=== PATIENT | male | born 1955 | race Caucasian/White ===

== ENCOUNTER 2020-06-27 17:44 | Emergency (ER) | payer MEDICARE, SELFPAY ==
[2020-06-27] VITALS (8 sets, daily range): BP systolic 173–202; BP diastolic 100–120; PULSE 68–100; RESP 24; TEMP 36.5; O2SAT 93–98
--- NOTE | 2020-06-27 17:52 | DI.RAD.S_ITS ---
PROCEDURE: XR ELBOW LT MIN 3V INDICATIONS: trauma TECHNIQUE: 4 views of the elbow were acquired. COMPARISON: None. FINDINGS: Bones: Acute comminuted distal humeral fracture is seen with fracture line extending to both medial and lateral humeral condyle and its articulation with proximal ulnar. Shortening and overlapping at distal humeral shaft is also noted. No gross dislocation. No suspicious bony lesions. Soft tissues: No elbow joint effusion. No suspicious soft tissue calcifications. IMPRESSION: Acute comminuted and impacted distal humeral fracture as above. Dictated by: Henry Bardales M.D. on 06/27/2020 at 18:15 Approved by: Henry Bardales M.D. on 06/27/2020 at 18:17
--- NOTE | 2020-06-27 18:11 | ED.GENADULT ---
HPI - General Adult General Chief complaint: Trauma Stated complaint: modified trauma Time Seen by Provider: 06/27/20 17:58 Source: patient and EMS Mode of arrival: EMS Limitations: no limitations History of Present Illness HPI narrative: Patient is a 64-year-old male was brought in by EMS on a backboard and cervical collar and in a left upper extremity splint brought in as a modified trauma secondary to injuries he sustained when he was a couple steps up on a ladder and fell off the ladder landing on his left elbow. He is not on anticoagulation. Did not hit his head. No loss of consciousness. Has pain to the left elbow. Bleeding to the left elbow. Your arrived immobilized by EMS. He reports no symptoms except for pain in his left elbow. He states this pain is only when his left elbow is moved. States that his last tetanus shot was just a couple years ago. He is unsure exactly how he fell off the ladder. Related Data Previous Rx's Medication Instructions Recorded cephalexin [Keflex] 500 mg PO QID 5 Days #20 cap 06/27/20 hydrocodone-acetaminophen [Cantril] 1 tab PO Q4-6H PRN #14 tab 06/27/20 ondansetron 4 mg PO Q6H PRN #10 tab 06/27/20 Allergies Allergy/AdvReac Type Severity Reaction Status Date / Time No Known Drug Allergies Allergy Verified 06/27/20 18:18 Review of Systems Constitutional Constitutional: Denies fatigue and Denies headache(s) Eyes Eyes: Denies change in vision ENT Ears, Nose, Mouth, and Throat: Denies vertigo, Denies dizziness and Denies headache(s) Cardiovascular Cardiovascular: Denies chest pain, Denies rapid heart rate and Denies dyspnea Respiratory Respiratory: Denies cough and Denies dyspnea Gastrointestinal Gastrointestinal: Denies abdominal pain, Denies nausea and Denies vomiting Genitourinary Genitourinary: Denies dysuria Genitourinary: Denies dysuria Musculoskeletal Musculoskeletal: Denies back pain Comments: Left elbow pain Integumentary/Breasts Comments: Skin abrasions cut to left elbow Neurologic Neurologic: Denies confusion, Denies vertigo, Denies dizziness and Denies headache(s) Psychiatric Psychiatric: Denies confusion Endocrine Endocrine: Denies fatigue Hematologic/Lymphatic Hematologic/Lymphatic: Denies easy bleeding and Denies easy bruising Allergic/Immunologic Allergic/Immunologic: Denies urticaria Patient History Medical History Patient denies medical problems Social History Smoking Status: Never smoker Exam Initial Vital Signs Initial Vital Signs: Vital Signs Pulse Rate 72 06/27/20 17:12 Respiratory Rate 24 06/27/20 17:12 Blood Pressure 202/120 H 06/27/20 17:12 Pulse Oximetry 98 06/27/20 17:12 Const General: cooperative Limitations: mental status not altered [facility] Head: normal to inspection and normocephalic Ears: hearing grossly normal bilaterally Nose: external nose normal Face and sinus: normal facial exam Eyes General: appearance normal, both eyes and all related structures Chest Chest: No crepitus and No tenderness Resp Effort & Inspection: normal respiratory effort Auscultation: clear to auscultation bilaterally Cardio Rate: regular rate Rhythm: regular rhythm Pulses: radial pulses present on the left GI Inspection: non-distended Palpation: soft, No firm and No tender Back/Spine/Pelvis Cervical Spine: collar present, No cervical muscular tenderness, No pain with cervical ROM, No cervical spinal tenderness and No step off deformity Thoracic/Lumbar Spine: No paraspinal tenderness, No thoraco-lumbar spasm, No thoracic spinal tenderness and No lumbar spinal tenderness Skin Other: Superficial skin abrasions and a 0.25 cm laceration over the olecranon process on the left elbow. Neuro General: patient alert, patient awake and patient oriented x3 Gait: normal gait Sensory Exam: no sensory deficits noted Other: Patient can flex and extend the left wrist. Ulnar and radial nerve motorIntact to left hand. Extrem Other: Left shoulder unremarkable. Left wrist unremarkable. Can flex and extend. Sensation motor intact to left wrist. Ulnar nerve intact both sensation and motor left upper extremity. Procedures Orthopedic Splinting/Casting Injury #1: Side: left Upper Extremity Injury Location: elbow Upper Extremity Immobilizer: posterior splint and sugar tong splint Other Orthopedic Equipment: other (Sling) Post splinting neuro exam: intact Post splinting vascular exam: intact Placed by: Provider Course Orders Ordered: ED Orders 06/27/20 17:52 XR elbow LT min 3V Stat 06/27/20 18:30 Basic Metabolic Panel Stat Complete Blood Count AUTO DIFF Stat 06/27/20 18:42 CT UE LT wo con Stat 06/27/20 20:55 COVID19 Stat Discontinued Medications Hydrocodone Bitart/Acetaminophen (Hydrocodone/Acet 5/325 Prepack) 1 bottle MISC SEEINSTR ONE Stop: 06/27/20 21:08 Last Admin: 06/27/20 21:27 Dose: 1 bottle Documented by: JAYNE Hydromorphone HCl (Hydromorphone 1 Mg Inj) 1 mg IV NOW ONE Stop: 06/27/20 18:55 Last Admin: 06/27/20 19:02 Dose: 1 mg Documented by: [email or web address] Sodium Chloride (Normal Saline 0.9%) 1,000 mls @ 125 mls/hr IV CONT YESI Last Admin: 06/27/20 18:54 Dose: 125 mls/hr Documented by: BTONEAgata Cefazolin Sodium/Dextrose (Ancef) 2 gm in 100 mls @ 200 mls/hr IV NOW ONE Stop: 06/27/20 18:38 Last Infusion: 06/27/20 20:57 Dose: 0 mls/hr Documented by: Admin: 06/27/20 18:54 Dose: 200 mls/hr Documented by: NAEEM Ondansetron HCl (Ondansetron 4 Mg Odt Prepack) 1 bottle MISC SEEINSTR ONE Stop: 06/27/20 21:36 Last Admin: 06/27/20 21:40 Dose: 1 bottle Documented by: JAZMIN Vital Signs Vital signs: Vital Signs - 8 hr 06/27/20 17:12 06/27/20 17:45 06/27/20 20:03 Temperature 97.7 F Pulse Rate 72 68 91 H Respiratory Rate 24 Blood Pressure 202/120 H 198/114 H Pulse Oximetry 98 94 94 06/27/20 20:16 06/27/20 20:30 06/27/20 21:00 Temperature Pulse Rate 91 H 90 91 H Respiratory Rate Blood Pressure 178/100 H 173/107 H 191/120 H Pulse Oximetry 93 94 95 06/27/20 21:06 06/27/20 21:30 Temperature Pulse Rate 93 H 100 H Respiratory Rate Blood Pressure 175/117 H Pulse Oximetry 95 95 Medical Decision Making Lab Data Lab results reviewed: Yes I reviewed the patient's lab results. Result diagrams: 06/27/20 18:30 06/27/20 18:30 Labs: Lab Results 06/27/20 06/27/20 06/27/20 Range/Units 18:30 18:30 20:55 WBC 14.9 H (4.5-11.0) X10^3/uL RBC 4.96 (4.5-5.9) X10^6/uL Hgb 16.3 (13.5-17.5) g/dL Hct 47.8 (41-53) % MCV 96.4 (80-100) fL MCH 32.8 (26-34) PG MCHC 34.1 (30-36) % RDW 12.6 (11.6-14.8) % Plt Count 161 (150-400) X10^3/uL Neut % (Auto) 86.0 H (50-75) % Lymph % (Auto) 8.1 L (25-40) % [place] % (Auto) 5.3 (3-14) % Eos % (Auto) 0.2 L (2-4) % Baso % (Auto) 0.4 (0-2) % Neut # (Auto) 17802 H (0343-7382) /uL Lymph # (Auto) 1200 (5964-0885) /uL [place] # (Auto) 800 (0-900) /uL Eos # (Auto) 0 (0-450) /uL Baso # (Auto) 100 (0-100) /uL Sodium 139 (137-145) mmol/L Potassium 4.2 (3.4-5.1) mmol/L Chloride 106 (98-107) mmol/L Carbon Dioxide 27 (22-32) mmol/L BUN 16 (9-20) mg/dL Creatinine 0.70 (0.66-1.25) mg/dL Estimated GFR > 60.0 (>60) mL/min BUN/Creatinine Ratio 22.9 H (6-22) Glucose 105 (80-110) mg/dL Calcium 9.1 (8.4-10.2) mg/dL COVID-19 PCR Negative (Negative) Imaging Data Extremity x-ray #1: Radiologist's Impression: [address] [id number] ReportSigned Patient: John JoyaMR#: [id number]: 4Acct:[id number]/Sex: 64 / MDate of Service: 06/27/20Loc: EDAccession Number: [id number] Procedure: XR elbow LT min 3V Ordering Provider: Nallely Chery D.O. PROCEDURE: XR ELBOW LT MIN 3V INDICATIONS: trauma TECHNIQUE: 4 views of the elbow were acquired. COMPARISON: None. FINDINGS: Bones: Acute comminuted distal humeral fracture is seen with fracture line extending to both medial and lateral humeral condyle and its articulation with proximal ulnar. Shortening and overlapping at distal humeral shaft is also noted. No gross dislocation. No suspicious bony lesions. Soft tissues: No elbow joint effusion. No suspicious soft tissue calcifications. IMPRESSION: Acute comminuted and impacted distal humeral fracture as above. Dictated by: Henry Bardales M.D. on 06/27/2020 at 18:15 Approved by: Henry Bardales M.D. on 06/27/2020 at 18:[address]: Radiologist's Impression: [address] Scan ReportSigned Patient: John Joya PMR#: [id number]: 4Acct:[id number]/Sex: 64 / MDate of Service: 06/27/20Loc: EDAccession Number: [id number] Procedure: CT UE LT wo con Ordering Provider: Nathanael Figueroa D.O. PROCEDURE: CT UE LT WO CON INDICATIONS: distal humerus fracture TECHNIQUE: Noncontrast 1-1.5 mm axial sections were acquired through the elbow joint, with coronal and sagittal reformats. COMPARISON: None. FINDINGS: Image quality: Excellent. Bones: As seen on elbow radiograph, again noted is acute comminuted fracture involving distal humeral shaft with fracture line extending to both medial and lateral humeral condyle as well as olecranon fossa with numerous small displaced fractured fragments. There is also up to 1.8 centimeter dorsal displacement of distal humerus in relation to distal humeral shaft and up to 3 centimeter overlapping at fracture site. No gross fracture in proximal radius is seen. Tiny chip fracture involving lateral and posterior aspect of proximal olecranon is seen with minimally displaced tiny fragment seen. No dislocation is noted. Soft tissues: There is marked soft tissue swelling and edema surrounding distal humeral fracture site. Moderate to large joint effusion is also present. IMPRESSION: 1. Acute comminuted, and displaced distal humeral fracture as described in detail above with fracture line extending to involve both medial and lateral epicondyles as well as olecranon groove. 2. Tiny chip fracture involving posterior lateral corner of proximal olecranon. 3. Significant soft tissue swelling and edema surrounding fracture site. Moderate to large joint effusion. Dictated by: Henry Bardales M.D. on 06/27/2020 at 19:40 Approved by: Henry Bardales M.D. on 06/27/2020 at 19:48 [facility] Narrative Medical decision making narrative: Patient was ambulatory. Has no other injuries from the fall found on exam or reported by the patient except for his left elbow. Does have a comminuted distal humerus fracture both seen on the x-rays and also the CT scan. The CT scan was ordered after consultation with Dr. Butcher with Orthopedics. Patient was given Ancef. His tetanus was updated prior to his arrival. Line we is to have patient follow-up with orthopedics as an outpatient. He was sent home with pain medicine and antibiotics. He was splinted in position of comfort per orthopedic recommendation. Orthopedics was aware of the skin abrasions and small laceration. Patient given care instructions and return precautions. He expressed understanding and agreement Discharge Plan Departure Patient Disposition: Home Clinical Impression: Abrasion of skin, Laceration of skin Fracture of distal end of humerus Qualifiers: Encounter type: initial encounter Fracture type: open Fracture morphology: unspecified fracture morphology Laterality: left Qualified Code(s): S42.402B - Unspecified fracture of lower end of left humerus, initial encounter for open fracture Fall from ladder Qualifiers: Encounter type: initial encounter Qualified Code(s): W11.XXXA - Fall on and from ladder, initial encounter Instructions: How to Take Care of Your Splint, Humeral Shaft Fracture Activity Restrictions/Additional Instructions: Start taking the antibiotics on 06/28/20 as directed. Take the pain medicine as needed. The splint needs to stay on and stay clean and stay dry. I discussed your case with Dr. Butcher with the [facility] group. Call their office tomorrow at [phone] for a follow-up. Return to the emergency department for any new or worsening symptoms Prescriptions: New hydrocodone-acetaminophen [Cantril] 5-325 mg tablet 1 tab PO Q4-6H PRN (Reason: pain) Qty: 14 RF: 0 cephalexin [Keflex] 500 mg capsule 500 mg PO QID 5 Days Qty: 20 RF: 0 ondansetron 4 mg tablet,disintegrating 4 mg PO Q6H PRN (Reason: nausea and vomiting) Qty: 10 RF: 0
--- NOTE | 2020-06-27 18:19 | PC.NURSE ---
1800 pt cleared off backboard/collar by dr. neely. pt turned for spinal exam per protocol.
[2020-06-27 18:38] LABS: Eosinophils Absolute Auto 0 /uL (0-450); Eosinophils Percent Auto 0.2 % (2-4)
--- NOTE | 2020-06-27 18:42 | DI.CT.S_ITS ---
PROCEDURE: CT UE LT WO CON INDICATIONS: distal humerus fracture TECHNIQUE: Noncontrast 1-1.5 mm axial sections were acquired through the elbow joint, with coronal and sagittal reformats. COMPARISON: None. FINDINGS: Image quality: Excellent. Bones: As seen on elbow radiograph, again noted is acute comminuted fracture involving distal humeral shaft with fracture line extending to both medial and lateral humeral condyle as well as olecranon fossa with numerous small displaced fractured fragments. There is also up to 1.8 centimeter dorsal displacement of distal humerus in relation to distal humeral shaft and up to 3 centimeter overlapping at fracture site. No gross fracture in proximal radius is seen. Tiny chip fracture involving lateral and posterior aspect of proximal olecranon is seen with minimally displaced tiny fragment seen. No dislocation is noted. Soft tissues: There is marked soft tissue swelling and edema surrounding distal humeral fracture site. Moderate to large joint effusion is also present. IMPRESSION: 1. Acute comminuted, and displaced distal humeral fracture as described in detail above with fracture line extending to involve both medial and lateral epicondyles as well as olecranon groove. 2. Tiny chip fracture involving posterior lateral corner of proximal olecranon. 3. Significant soft tissue swelling and edema surrounding fracture site. Moderate to large joint effusion. Dictated by: Henry Bardales M.D. on 06/27/2020 at 19:40 Approved by: Henry Bardales M.D. on 06/27/2020 at 19:48
[2020-06-27 18:43] LABS: Add Manual Diff / Slide Review NO; Basophils Absolute Auto 100 /uL (0-100); Basophils Percent Auto 0.4 % (0-2); Hematocrit 47.8 % (41-53); Hemoglobin 16.3 g/dL (13.5-17.5); Lymphocytes Absolute Auto 1200 /uL (1100-4500); Lymphocytes Percent Auto 8.1 % (25-40); Mean Corpuscular HGB Conc 34.1 % (30-36); Mean Corpuscular Hemoglobin 32.8 PG (26-34); Mean Corpuscular Volume 96.4 fL (80-100); Monocytes Absolute Auto 800 /uL (0-900); Monocytes Percent Auto 5.3 % (3-14); Neutrophils Absolute Auto 12800 /uL (1500-7000); Platelet Count 161 X10^3/uL (150-400); Red Blood Cell Count 4.96 X10^6/uL (4.5-5.9); Red Cell Distribution Width 12.6 % (11.6-14.8); White Blood Cell Count 14.9 X10^3/uL (4.5-11.0)
[2020-06-27] MEDS: SODIUM CHLORIDE 0.9% 1,000 ML 125 ML IV (18:54)
[2020-06-27] MEDS: CEFAZOLIN 2 GM/100 ML FROZ.PIGGY IV (18:54)
[2020-06-27 18:55] LABS: BUN Creatinine Ratio 22.9 (6-22); Blood Urea Nitrogen 16 mg/dL (9-20); Calcium 9.1 mg/dL (8.4-10.2); Carbon Dioxide 27 mmol/L (22-32); Chloride 106 mmol/L (98-107); Estimated Glomerular Filt Rate > 60.0 mL/min (>60); Glucose 105 mg/dL (80-110); HEMOLYSIS < 15 (0-50); Potassium 4.2 mmol/L (3.4-5.1); Sodium 139 mmol/L (137-145)
[2020-06-27] MEDS: HYDROMORPHONE 1 MG INJ IV (19:02)
[2020-06-27 20:56] LABS: COVID19 -Nasal RAPID Negative (Negative)
[2020-06-27] MEDS: HYDROCODONE/ACET 5/325 PREPACK 1 BOTTLE MISC (21:27)
[2020-06-27] MEDS: ONDANSETRON 4 MG ODT PREPACK 1 BOTTLE MISC (21:40)
== END 2020-06-27 21:55 | disposition home or self-care (01) ==
PROVIDERS: Emergency Provider Emergency Medicine
DX: S42.402B Unspecified fracture of lower end of left humerus, initial encounter for open fracture (principal); S50.312A Abrasion of left elbow, initial encounter; W11.XXXA Fall on and from ladder, initial encounter
CPT/HCPCS: 29105; 29125; 36415; 73080; 73200; 80048; 85025; 87635; 96361; 96365; 96366; 96375; 99284; J0690; J1170

== ENCOUNTER 2020-06-29 13:06 | Day surgery (SDC) | payer MEDICARE, SELFPAY ==
[2020-06-29] VITALS (8 sets, daily range): BP systolic 101–159; BP diastolic 71–103; PULSE 77–95; RESP 14–21; TEMP 36.6–37.5; O2SAT 88–98; BMI 32.3
--- NOTE | 2020-06-29 15:36 | SUR.PREOP ---
Patient resting quietly in bed awaiting surgical procedure.
--- NOTE | 2020-06-29 15:44 | PM.HP.1 ---
History of Present Illness History of Present Illness Date Patient Seen: 06/29/20 Time Patient Seen: 15:28 Chief complaint: SDC Narrative: 64-year-old gentleman who fell off a ladder landing on the posterior aspect of his left elbow sustaining an intra-articular distal humerus fracture Patient History Medical History Patient denies medical problems Family & Social History Social History: household members none Tobacco & Substance use: Smoking Status Never smoker alcohol intake frequency holiday/special occasion Substance Use Type does not use Meds Home Medications and Allergies Home Medications Medication Instructions Recorded Confirmed Type cephalexin [Keflex] 500 mg PO QID 5 Days #20 cap 06/27/20 Rx hydrocodone-acetaminophen [[place]] 1 tab PO Q4-6H PRN #14 tab 06/27/20 Rx ondansetron 4 mg PO Q6H PRN #10 tab 06/27/20 Rx Allergies Allergy/AdvReac Type Severity Reaction Status Date / Time No Known Drug Allergies Allergy Verified 06/29/20 13:57 Review of Systems Review of Systems ROS: Yes All systems reviewed with the patient and are negative except as otherwise documented Exam Vital Signs (past 8 hours): - 06/29/20 14:20 Temperature 98 F Pulse Rate 82 Respiratory Rate 16 Blood Pressure 139/94 H Pulse Oximetry 98 Oxygen Delivery Method Room Air Narrative Exam Narrative: On physical exam, patient alert and oriented x3. No apparent distress. Patient has normal flexion and extension of his fingers. Ulnar, median, and radial nerve intact both motor and sensory function. Brisk cap refill. Palpable radial pulse. Patient has some abrasions over the olecranon but no sign of any open injury. No sign of any open fracture. The abrasions over the olecranon or clean no sign of any foreign material dirt or debris. Nontender to palpation to the forearm wrist and hand. No sign of any proximal humerus or clavicle fracture. Assessment & Plan Assessment & Plan narrative: Patient with a highly comminuted intra-articular distal humerus fracture requiring surgical fixation. Will plan on doing an open reduction internal fixation of the left distal humerus with olecranon osteotomy in order to access the articular surface of the distal humerus. I went over the particular risks and limitations associated with the procedure. All of the questions and concerns were answered to his full satisfaction and consent form was freely obtained. COVID-19 COVID-19 status: Negative Result date/Date tested (Pos, Neg/Pending): 06/27/20 Time Spent With Patient Time with patient: 15-24 minutes
--- NOTE | 2020-06-29 15:48 | PM.PREOP ---
Pre-operative Note COVID-19 COVID-19 status: Negative Result date/Date tested (Pos, Neg/Pending): 06/27/20 Interval Note History & Physical reviewed/Exam performed by Physician: Yes Changes to H&P: No
[2020-06-29] MEDS: LACTATED RINGERS 1,000 ML 42 ML IV ×2 (15:50→17:40)
[2020-06-29] MEDS: fentaNYL 100 MCG/2 ML INJ 50 MCG IV (15:57)
[2020-06-29] MEDS: MIDAZOLAM 2 MG/2 ML VIAL IV (15:57)
--- NOTE | 2020-06-29 16:04 | SUR.PREOP ---
Block start time [1555] . Monitoring initiated and maintained throughout procedure. Oxygen and medications given per anesthesiologist instructions. Patient remained stable throughout procedure, no adverse reactions noted. Block end time 1620 ].
[2020-06-29] MEDS: CEFAZOLIN 2 GM/100 ML FROZ.PIGGY IV (16:29)
--- NOTE | 2020-06-29 16:42 | PM.PROC.1 ---
Procedures Date/Time Date of procedure: 06/29/20 Time of procedure: 15:55 Nerve Block Time out performed: Yes Location of anesthetic used: left supraclavicular brachial plexus Amount of anesthesia used (mL): 17 Nerve blocks: brachial plexus (Left supraclavicular block) Procedure successful: Yes Patient tolerated procedure: well and no complications Complications: none Additional comments: Patient for ORIF of left elbow. Brachial Plexus Block offered for post op pain control. Risks and benefits discussed and questions answered. Patient agreed to a block and the consent was signed. In Procedure Room routine monitors and O2 per NC applied. IV sedation with fentanyl and midazolam given. Nerve stimulator applied. Chloroprep and sterile drape placed. Ultrasound visualization of the brachial plexus at the supraclavicular level obtained. Local skin wheal with Lidocaine 1% (27g). 100mm 22g Stimex needle advanced with constant mild aspiration. Presumed appropriate position of needle by Nerve Stimualtor and Ultrasound visualization and negative aspiration, but difficulty with injection on two separate occassions. Needle repositioned and positive twitch (deltoid) to 3mAmp so needle withdrawn slightly. Negative aspiration and easily injected 2ml test dose (with negative reaction). Full volume of 17ml (given in aliquots after demonstrating negative aspirations) - 15ml Ropivacaine 0.5% and 2ml Lidocaine 2% with epi. Patient tolerated the procedure well and was ready for the OR. Time 7937-0023
--- NOTE | 2020-06-29 17:03 | SUR.OPER ---
Lateral on padded OR bed with caro bag for support, head on pillow, gel axillary roll in place, bottom leg bent with gel pad under knee to foot, upper leg straight and supported with pillows. Upper arm prepped into field and supported by an armrest, bottom arm secured to padded arm board. Safety belt at hip, tape over blanket lower legs.
[2020-06-29] MEDS: LIDOCAINE 1% W/EPI 20 ML INJ (17:09)
--- NOTE | 2020-06-29 19:58 | P.OP_ITS ---
Operative Date/Time/Diagnoses Date of procedure: 06/29/20 Time of procedure: 19:59 Pre-op diagnosis: Left intra-articular highly comminuted distal humerus fracture Post-op diagnosis: same Procedure & Clinicians Procedure: Open reduction internal fixation of a left intra-articular distal humerus fracture with an olecranon osteotomy Same procedure as scheduled: Yes Indications: Comminuted intra-articular distal humerus fracture, left Surgeon: Malvin Butcher Marketing Producer: Ruchi Rehman Anesthesia Type: General and Peripheral nerve block Operative Notes Findings: Highly comminuted intra-articular distal radius fracture the articular surface was in multiple pieces. There was a large ulnar column and radial column he has a significant amount of comminution in the middle. Comminution extra-articular with extension into the humeral shaft Closure Type: primary Specimen(s): none sent Applied: implant(s) (Accu Med radial and ulnar distal humerus plates as well as an olecranon plate) Estimated Blood Loss (mL): 10 Blood products transfused: none Tourniquet time (min): 150 Procedure in detail: On date of service, patient was met in the holding area where his operative site was signed and witnessed by the OR staff. Surgeries once again discussed with the patient in remaining questions or concerns he had were answered fully. Patient was taken back to the operating theater placed on the operating table in a supine position. Great care was taken to ensure that all bony prominences were properly padded. Well-padded tourniquet was placed up along the upper extremity. Patient was placed into the lateral position and held with a beanbag. Axillary roll was placed. Time-out was performed verifying patient's name procedure and operative site. Left arm was prepped and draped in the normal sterile fashion. Esmarch was used to exsanguinate the limb and the tourniquet was turned up to 250 mm of mercury. Posterior incision was made going distal to the olecranon. Ten blade was used to incise the skin and fascial tissue. Deep knife was used for continued dissection exposing the triceps as well as the olecranon and the ulna shaft. Once we have the olecranon and proximal ulna visualized a osteotomy cutting guide was placed in a chevron cut was made. Olecranon plate was placed and pre drilled for easy repair. Proximal screws into the osteotomy were left in place with the plate. Next the osteotomy piece of the olecranon and the triceps was reflected off the distal humerus giving us good visualization of the articular surface as well as the distal 1/3 of the humeral shaft. The ulnar nerve was dissected out of the cubital tunnel and dissected free from the distal humerus. It was placed more anteriorly to be out of harm's way throughout the case. With the articular surface exposed we began reapproximating the multiple pieces that made up the articular surface. The were held together with K-wires. Once we reconstructed the radial and ulnar articular columns we were able to build off of that. The articular surface was then attached to the extra-articular portion of the distal humerus which were also into radial and ulnar columns. These were also then held together with K-wires. Now we had 1 large radial column 1 large ulnar column. We were able to put those together and hold that with a K-wire and then reduce it to the rest of the ulna shaft. Now that we had the multiple bony fragments reapproximated and provisionally fixated with K-wires, radial plate was placed and fixated distally and proximally. This helped hold the articular surface together. Ulnar plate was placed in the additional screws were placed through the trochlea and the radial articular column. This provided a secure fixation of the articular surface. Additional screws were placed more proximally providing fixation of the extra- articular portion of the radial and ulnar column. Then in the most proximal screws were used to fixate our distal humerus piece to the rest of the shaft. This provided a secure fixation the multiple pieces of his distal humerus fracture. Mini C-arm was used throughout this to verify reduction plate positioning and screw length. Once we were satisfied with the overall reduction and plate positioning as well as fixation turned our attention to the olecranon osteotomy. The plate was still attached to the osteotomy piece and this helped us reduce the piece back onto the rest of the ulna. Since it had been pre drilled we were able to realign the plate onto the screw holes and then fixate the plate back onto the ulna repairing the osteotomy. Final x-rays were obtained. The wound was copiously irrigated. Wound was closed in a layered fashion patient was placed into a posterior splint. Patient was extubated and taken to the PACU in stable condition. Complications: none Post-operative Condition: stable Plan for aftercare: Patient will be in a posterior splint until next week. At that point he can be transitioned over into a hinged elbow brace. Once in the hinged elbow brace, patient can begin gentle range of motion of the elbow. No lifting more than 2-3 lb for the next 6 weeks.
== END 2020-06-29 21:26 | disposition home or self-care (01) ==
PROVIDERS: Referring Provider Orthopaedic Surgery; Visit Provider Orthopaedic Surgery
PROC: (CPT 24586; principal; 2020-06-29 15:15)
DX: S42.412A Displaced simple supracondylar fracture without intercondylar fracture of left humerus, initial encounter for closed fracture (principal); W11.XXXA Fall on and from ladder, initial encounter; I10 Essential (primary) hypertension
CPT/HCPCS: 24586; 64450; J0690; J1100; J2250; J2405; J2704; J3010